=== PATIENT | male | born 1945 | race Caucasian/White ===

== ENCOUNTER 2017-08-25 23:54 | Observation (INO) | payer OTHER ==
--- NOTE | 2017-08-26 00:38 | EDPHY ---
H & P Stated Complaint: feeling nauseous syncopal weak Time Seen by Provider: 08/26/17 00:13 HPI/ROS: Chief Complaint: Nausea, collapse HPI: 71-year-old male was [place] the upper this evening when he began suddenly feeling very ill with nausea and began sweating. He was walking out of the theater when he collapsed. He is not sure if he had a complete loss of consciousness. After that he had to go to the bathroom and had a loose stool. He also vomited once. He now feels much better. He did not have any chest pain or shortness of breath. No history of similar episodes in the past. No recent illness. No calf pain or swelling. No recent travel or periods of immobility. ROS: 10 point Review of Systems is negative except as noted in the HPI. PMH: Prostate disease Social History: No smoking, occasional alcohol, occasional marijuana Family History: non-contributory Physical Exam: Gen: Awake, Alert, No Distress HEENT: Nose: no rhinorrhea Eyes: PERRLA, EOMI Mouth: Moist mucosa Neck: Supple, no JVD Chest: nontender, lungs clear to auscultation Heart: S1, S2 normal, no murmur Abd: Soft, non-tender, no guarding Back: no CVA tenderness, no midline tenderness Ext: no edema, non-tender Skin: no rash Neuro: CN II-XII intact, Sensation grossly intact, Strength 5/5 in bilateral upper and lower extremities - Personal History Current Tetanus/Diphtheria Vaccine: Yes Current Tetanus Diphtheria and Acellular Pertussis (TDAP): Yes - Medical/Surgical History Hx Asthma: No Hx Chronic Respiratory Disease: No Hx Diabetes: No Hx Cardiac Disease: No Hx Renal Disease: No Hx Cirrhosis: No Hx Alcoholism: No Hx HIV/AIDS: No Hx Splenectomy or Spleen Trauma: No - Social History Smoking Status: Former smoker Constitutional: Initial Vital Signs Temperature (C) 36.3 C 08/25/17 23:57 Heart Rate 96 08/25/17 23:57 Respiratory Rate 16 08/25/17 23:57 Blood Pressure 131/82 H 08/25/17 23:57 O2 Sat (%) 94 08/25/17 23:57 O2 Delivery Mode Room Air Allergies/Adverse Reactions: No Known Allergies Allergy (Unverified 08/26/17 01:26) Medical Decision Making - Diagnostics EKG Interpretation: ECG time 12:39 a.m.. Sinus rhythm with a rate of 84 normal axis, normal intervals, no acute ST or T-wave changes. ED Course/Re-evaluation: 71-year-old male with the sudden onset of nausea and vomiting with a episode that sounds syncopal. Patient feeling much better now. Symptoms concerning for possible cardiac event although I think it is probably a gastroenteritis. He has not had any further vomiting or diarrhea since his initial symptoms which were approximately 2 hours ago. He does have a an elevation was white blood cell count. Troponin is normal. Given the circumstances of this event he will be admitted to the hospital to follow his troponins and to treat his symptoms. I have discussed with Dr. Mcconnell. He he will admit the patient for further evaluation. - Data Points Laboratory Results: Laboratory Results 08/26/17 00:30 08/26/17 00:30 08/26/17 08/26/17 00:30 00:30 WBC 18.32 10^3/uL H 10^3/uL (3.80-9.50) RBC 4.84 10^6/uL 10^6/uL (4.40-6.38) Hgb 15.9 g/dL g/dL (13.7-17.5) Hct 47.1 % % (40.0-51.0) MCV 97.3 fL fL (81.5-99.8) MCH 32.9 pg pg (27.9-34.1) MCHC 33.8 g/dL g/dL (32.4-36.7) RDW 12.6 % % (11.5-15.2) Plt Count 257 10^3/uL 10^3/uL (150-400) MPV 10.4 fL fL (8.7-11.7) Neut % (Auto) 88.8 % H % (39.3-74.2) Lymph % (Auto) 3.1 % L % (15.0-45.0) [place] % (Auto) 6.7 % % (4.5-13.0) Eos % (Auto) 0.8 % % (0.6-7.6) Baso % (Auto) 0.3 % % (0.3-1.7) Nucleat RBC Rel Count 0.0 % % (0.0-0.2) Absolute Neuts (auto) 16.27 10^3/uL H 10^3/uL (1.70-6.50) Absolute Lymphs (auto) 0.56 10^3/uL L 10^3/uL (1.00-3.00) Absolute Monos (auto) 1.23 10^3/uL H 10^3/uL (0.30-0.80) Absolute Eos (auto) 0.14 10^3/uL 10^3/uL (0.03-0.40) Absolute Basos (auto) 0.06 10^3/uL 10^3/uL (0.02-0.10) Absolute Nucleated RBC 0.00 10^3/uL 10^3/uL (0-0.01) Immature Gran % 0.3 % % (0.0-1.1) Immature Gran # 0.06 10^3/uL 10^3/uL (0.00-0.10) Sodium 142 mEq/L mEq/L (134-144) Potassium 4.7 mEq/L mEq/L (3.5-5.2) Chloride 107 mEq/L mEq/L (97-110) Carbon Dioxide 25 mEq/l mEq/l (22-31) Anion Gap 10 mEq/L mEq/L (8-16) BUN 19 mg/dL mg/dL (7-23) Creatinine 1.1 mg/dL mg/dL (0.7-1.3) Estimated GFR > 60 Glucose 159 mg/dL H mg/dL (70-100) Calcium 9.0 mg/dL mg/dL (8.5-10.4) Troponin I < 0.012 ng/mL ng/mL (0.000-0.034) Medications Given: Discontinued Medications Ondansetron HCl (Zofran) 4 mg IVP EDNOW ONE Stop: 08/26/17 01:12 Last Admin: 08/26/17 01:15 Dose: 4 mg Departure - Departure Disposition: [facility] Inpatient Acute Clinical Impression: Syncope, Vomiting Condition: Fair Referrals: DANETTE RICHARDSON [Primary Care Provider] - As per Instructions
--- NOTE | 2017-08-26 00:41 | CPEKG ---
Heart Rate: 84 RR Interval: 714 P-R Interval: 200 QRSD Interval: 90 QT Interval: 344 QTC Interval: 407 P [place]: 28 QRS [place]: -17 T Wave [place]: 9 EKG Severity - ABNORMAL ECG - EKG Impression: SINUS RHYTHM EKG Impression: PROBABLE LVH WITH SECONDARY REPOL ABNRM Electronically Signed By: Edinson Sabillon 26-Aug-2017 07:08:42
[2017-08-26 00:43] LABS: % IMMATURE GRANULYOCYTES 0.3 % (0.0-1.1); ABSOLUTE IMMATURE GRANULOCYTES 0.06 10^3/uL (0.00-0.10); ADD DIFF? NO; ADD MORPH? NO; ADD SCAN? NO; ATYPICAL LYMPHOCYTE FLAG 0 (0-99); FRAGMENT RBC FLAG 0 (0-99); HEMATOCRIT 47.1 % (40.0-51.0); HEMOGLOBIN 15.9 g/dL (13.7-17.5); LEFT SHIFT FLG 0 (0-99); LIPEMIA HEMOLYSIS FLAG 90 (0-99); MEAN CELL HEMOGLOBIN 32.9 pg (27.9-34.1); MEAN CELL HEMOGLOBIN CONCENTR. 33.8 g/dL (32.4-36.7); MEAN CELL VOLUME 97.3 fL (81.5-99.8); MEAN PLATELET VOLUME 10.4 fL (8.7-11.7); PLATELET CLUMPS FLAG 10 (0-99); PLATELET COUNT 257 10^3/uL (150-400); RED BLOOD CELL COUNT 4.84 10^6/uL (4.40-6.38); RED CELL DISTRIBUTION WIDTH 12.6 % (11.5-15.2)
[2017-08-26 01:00] LABS: ANION GAP 10 mEq/L (8-16); CARBON DIOXIDE 25 mEq/l (22-31); CHLORIDE 107 mEq/L (97-110); CREATININE 1.1 mg/dL (0.7-1.3); GLOMERULAR FILTRATION RATE > 60; GLUCOSE 159 mg/dL (70-100); POTASSIUM 4.7 mEq/L (3.5-5.2); SODIUM 142 mEq/L (134-144)
[2017-08-26 01:11] LABS: TROPONIN I < 0.012 ng/mL (0.000-0.034)
[2017-08-26] MEDS ORDERED: ONDANSETRON 4 MG/2 ML VIAL IVP ONE (01:11)
[2017-08-26] MEDS ORDERED: ONDANSETRON 4 MG/2 ML VIAL IVP PRN (01:26)
[2017-08-26] MEDS ORDERED: ACETAMINOPHEN 325 MG TAB PO PRN (01:26)
[2017-08-26] MEDS ORDERED: ONDANSETRON DISINTEGRATING 4 MG TAB PO PRN (01:26)
--- NOTE | 2017-08-26 02:15 | PDGENHP ---
History and Physical - Chief Complaint Nausea, vomiting - History of Present Illness 71 yo M w/ BPH presents after acute episode of malaise and nausea. Patient went to the [facility] and was in his usual state of health until after the show when he began to feel malaise, nausea, and weakness. He then went to the bathroom and had an episode of large volume diarrhea. He felt well enough after this to drive with his from [place] to [facility]. They are unclear if he lost consciousness at any point but his memory of the events are somewhat hazy. He feels improved but had another episode of nausea and vomiting while in the ED. He denies feeling chest pain, palpitations, or shortness of breath. Of note, he did take Cialis last night and had a double gin and tonic. Additionally, he thinks he had several sick contacts 2 nights ago at a card game. He denies any unusual or undercooked food intake. History Information - Allergies/Home Medication List Allergies/Adverse Reactions: No Known Allergies Allergy (Unverified 08/26/17 01:26) I have personally reviewed and updated: family history, medical history - Past Medical History Additional medical history: BPH - Surgical History Reports: no pertinent surgical hx - Family History Additional family history: Father lived until 95, mother until 84; denies significant hx - Social History Smoking Status: Former smoker Alcohol Use: Occasionally Drug Use: None Review of Systems Review of Systems: ROS: 10pt was reviewed & negative except for what was stated in HPI & below Physical Exam Physical Exam: Temp Pulse Resp BP Pulse Ox 36.3 C 81 22 H 134/75 H 99 08/25/17 23:57 08/26/17 01:15 08/26/17 01:15 08/26/17 01:15 08/26/17 01:15 Constitutional: no apparent distress, not in pain Eyes: PERRL, EOMI Ears, Nose, Mouth, Throat: moist mucous membranes, no oral mucosal ulcers Cardiovascular: regular rate and rhythym, systolic murmur Respiratory: no respiratory distress, no rales or rhonchi Gastrointestinal: normoactive bowel sounds, soft, non-tender abdomen Genitourinary: no bladder fullness, no bladder tenderness Skin: warm, normal color Musculoskeletal: full muscle strength, no muscle tenderness Neurologic: AAOx3, CN II-XII Intact Psychiatric: interacting appropriately, not anxious Lab Data & Imaging Review 08/26/17 00:30 08/26/17 00:30 WBC 18.32 10^3/uL (3.80-9.50) H 08/26/17 00:30 RBC 4.84 10^6/uL (4.40-6.38) 08/26/17 00:30 Hgb 15.9 g/dL (13.7-17.5) 08/26/17 00:30 Hct 47.1 % (40.0-51.0) 08/26/17 00:30 MCV 97.3 fL (81.5-99.8) 08/26/17 00:30 MCH 32.9 pg (27.9-34.1) 08/26/17 00:30 MCHC 33.8 g/dL (32.4-36.7) 08/26/17 00:30 RDW 12.6 % (11.5-15.2) 08/26/17 00:30 Plt Count 257 10^3/uL (150-400) 08/26/17 00:30 MPV 10.4 fL (8.7-11.7) 08/26/17 00:30 Neut % (Auto) 88.8 % (39.3-74.2) H 08/26/17 00:30 Lymph % (Auto) 3.1 % (15.0-45.0) L 08/26/17 00:30 [place] % (Auto) 6.7 % (4.5-13.0) 08/26/17 00:30 Eos % (Auto) 0.8 % (0.6-7.6) 08/26/17 00:30 Baso % (Auto) 0.3 % (0.3-1.7) 08/26/17 00:30 Nucleat RBC Rel Count 0.0 % (0.0-0.2) 08/26/17 00:30 Absolute Neuts (auto) 16.27 10^3/uL (1.70-6.50) H 08/26/17 00:30 Absolute Lymphs (auto) 0.56 10^3/uL (1.00-3.00) L 08/26/17 00:30 Absolute Monos (auto) 1.23 10^3/uL (0.30-0.80) H 08/26/17 00:30 Absolute Eos (auto) 0.14 10^3/uL (0.03-0.40) 08/26/17 00:30 Absolute Basos (auto) 0.06 10^3/uL (0.02-0.10) 08/26/17 00:30 Absolute Nucleated RBC 0.00 10^3/uL (0-0.01) 08/26/17 00:30 Immature Gran % 0.3 % (0.0-1.1) 08/26/17 00:30 Immature Gran # 0.06 10^3/uL (0.00-0.10) 08/26/17 00:30 Sodium 142 mEq/L (134-144) 08/26/17 00:30 Potassium 4.7 mEq/L (3.5-5.2) 08/26/17 00:30 Chloride 107 mEq/L (97-110) 08/26/17 00:30 Carbon Dioxide 25 mEq/l (22-31) 08/26/17 00:30 Anion Gap 10 mEq/L (8-16) 08/26/17 00:30 BUN 19 mg/dL (7-23) 08/26/17 00:30 Creatinine 1.1 mg/dL (0.7-1.3) 08/26/17 00:30 Estimated GFR > 60 08/26/17 00:30 Glucose 159 mg/dL (70-100) H 08/26/17 00:30 Calcium 9.0 mg/dL (8.5-10.4) 08/26/17 00:30 Troponin I < 0.012 ng/mL (0.000-0.034) 08/26/17 00:30 Visualized and Interpreted EKG results: Yes EKG Interpretation: Positive for: normal sinsus rhythm Assessment & Plan Assessment: 71 yo M presents after acute episode of malaise and nausea with possible syncope. Plan: 1. Presyncope - Accompanied by nausea, vomiting, and single episode of large volume diarrhea. Unclear etiology, possibly an adverse effect of Cialis and alcohol. Viral gastroenteritis also possible but seems less likely noting acute onset. - Admit for observation and cardiac rule-out - Monitor on telemetry, trend cardiac enzymes - Supportive care with anti-emetics 2. BPH - Takes finasteride as his only regular medication Diet - Regular Code - Full Ppx - LMWH Dispo - Admit to observation status
[2017-08-26 04:38] LABS: % IMMATURE GRANULYOCYTES 0.4 % (0.0-1.1); ABSOLUTE IMMATURE GRANULOCYTES 0.06 10^3/uL (0.00-0.10); ADD DIFF? NO; ADD MORPH? NO; ADD SCAN? NO; ATYPICAL LYMPHOCYTE FLAG 0 (0-99); FRAGMENT RBC FLAG 0 (0-99); HEMATOCRIT 44.7 % (40.0-51.0); HEMOGLOBIN 15.7 g/dL (13.7-17.5); LEFT SHIFT FLG 0 (0-99); LIPEMIA HEMOLYSIS FLAG 90 (0-99); MEAN CELL HEMOGLOBIN 33.8 pg (27.9-34.1); MEAN CELL HEMOGLOBIN CONCENTR. 35.1 g/dL (32.4-36.7); MEAN CELL VOLUME 96.3 fL (81.5-99.8); MEAN PLATELET VOLUME 10.6 fL (8.7-11.7); PLATELET CLUMPS FLAG 10 (0-99); PLATELET COUNT 241 10^3/uL (150-400); RED BLOOD CELL COUNT 4.64 10^6/uL (4.40-6.38); RED CELL DISTRIBUTION WIDTH 12.6 % (11.5-15.2)
[2017-08-26 04:58] LABS: ANION GAP 12 mEq/L (8-16); CALCIUM 8.9 mg/dL (8.5-10.4); CARBON DIOXIDE 23 mEq/l (22-31); CHLORIDE 106 mEq/L (97-110); CREATININE 0.9 mg/dL (0.7-1.3); GLOMERULAR FILTRATION RATE > 60; GLUCOSE 141 mg/dL (70-100); MAGNESIUM 1.9 mg/dL (1.6-2.3); POTASSIUM 4.6 mEq/L (3.5-5.2); SODIUM 141 mEq/L (134-144)
[2017-08-26 05:09] LABS: TROPONIN I < 0.012 ng/mL (0.000-0.034)
[2017-08-26] MEDS ORDERED: ENOXAPARIN 40 MG/0.4 ML SYR SC SCH (09:00)
--- NOTE | 2017-08-26 10:50 | ASMTCMCOM ---
CM Note CM Note Notes: 08/26/2017 Case Management Note Met w/pt. Reports strong support from life partner. CARUSO signed. Pt reports active lifestyle prior to admission and is planning a bike ride later this weekend. No case management d/c needs identified d/t pt age, support, and activity levels prior to admission. Case Management d/c poc: Home independent when medically stable with follow up as directed. Date Signed: 08/26/2017 10:50 AM Electronically Signed By:Carissa Maya RN
[2017-08-26 11:18] VITALS: BP 112/65; PULSE 59; RESP 16; TEMP 98.3; O2SAT 93
--- NOTE | 2017-08-26 14:35 | PDDCSUM ---
Discharge Summary Discharge Summary: HPI/Hospital Course: 71 yo M admitted with malaises, abd discomfort, N/V, diarrhea. ?Presyncope. Monitored overnight on tele with no events. No further diarrhea or nausea/ Vomiting. Wants to be discharged. We did not get an Echocardiogram. I offered to get it prior to discharge but he want to get this in an outpatient setting. As he is now back to baseline, asymptomatic, can ambulate w/o difficulty, he will be discharged. F/U with PCP next week. DDX: 1. Presyncope - Accompanied by nausea, vomiting, and single episode of large volume diarrhea. Unclear etiology, possibly an adverse effect of Cialis and alcohol. Viral gastroenteritis also possible but seems less likely noting acute onset. 2. BPH - Takes finasteride as his only regular medication 3. Leukocytosis, no signs of bacterial infection. VSS. Afebrile Exam: VSS NAD AAOX3 RRR CTA B S/NT/ND NO LE EDEMA MEDS: SEE MED REC TOTAL TIME SPENT ON DISCHARGE IS 35 MINUTES
--- NOTE | 2017-08-26 15:49 | ASDISCHSUM ---
Discharge Information Plan Status:Home with No Needs Medically Cleared to Leave:08/25/2017 Discharge Date:08/26/2017 02:15 PM CM D/C Disposition:Home, Routine, Self-Care ADT D/C Disposition:Home, Routine, Self-Care Projected Discharge Date:08/26/2017 02:15 PM Transportation at D/C:Family Discharge Delay Reason: Follow-Up Date:08/26/2017 02:15 PM Discharge Slot: Final Diagnosis: Placement Information Patient Contact Information Contact Name:HARRY Relationship:Life Partner Address:[address] City:[place] Alternate Phone: [facility]/Zip Code:[place] [address] Email: Financial Information Financial Class: Primary Plan Desc:MEDICARE OUTPATIENT Primary Plan Number:[id number] Secondary Plan Desc: Secondary Plan Number: Assessment Information [facility] CM Progress Note CM Note CM Note Notes: 08/26/2017 Case Management Note Met w/pt. Reports strong support from life partner. SHADY signed. Pt reports active lifestyle prior to admission and is planning a bike ride later this weekend. No case management d/c needs identified d/t pt age, support, and activity levels prior to admission. Case Management d/c poc: Home independent when medically stable with follow up as directed. Date Signed: 08/26/2017 10:50 AM Electronically Signed By:Carissa Maya RN Intervention Information Intervention Type:*CARUSO-Signed Date of Service:08/26/2017 10:47 AM Patient Type:Observation Staff Member:GOOD Maya Hillary Hours: Discipline: Severity: Comment:
[2017-08-26] MEDS ORDERED: FINASTERIDE 5 MG TAB PO SCH (21:00)
== END 2017-08-26 14:15 | disposition home or self-care (01) ==
LOC: F2W 08-26 02:26
PROVIDERS: ADMIT Student in an Organized Health Care Education/Training Program; ATTEND Student in an Organized Health Care Education/Training Program
DX: R55 Syncope and collapse (principal); R11.2 Nausea with vomiting, unspecified; R19.7 Diarrhea, unspecified; R53.81 Other malaise
CPT/HCPCS: 93005; G0378; J2405; 96374; J1650